=== PATIENT | female | born 1950 | race Caucasian/White ===

== ENCOUNTER 2016-12-03 05:26 | Day surgery (SDC) | payer MEDICARE ==
[2016-12-02 10:47] LABS: HEMOGLOBIN 14.5 g/dL (12-16); MCH 29.6 pg (26.0-34.0); MCV 89.8 fL (80.0-100.0); MEAN PLATELET VOLUME 9.8 fL (7.4-10.4); RBC 4.9 10x6/uL (4.00-5.40); RDW 14.1 % (11.5-14.5); WBC 12.9 10x3/uL (4.8-10.8)
[~2016-12-03] VITALS: Ht 175.3 cm; Wt 88.5 kg
[~2016-12-03 05:26] MED LIST: CALAN SR240 MG PO; LEXAPRO10 MG PO; PRAVASTATIN SOD10 MG PO
[2016-12-03 09:11] VITALS: BP 146/84; Ht 175.3 cm; Wt 88.5 kg
--- NOTE | 2016-12-03 15:13 | NUR ---
1520--DISCHARGE INSTRUCTIONS GIVEN, PT VERBALIZES UNDERSTANDING. PT OFF UNIT VIA [place]. DEJON RAMÍREZ
--- NOTE | 2016-12-03 15:13 | NUR ---
1512--IV DC'D, PT UP TO DRESS AT THIS TIME. DEJON RN
--- NOTE | 2016-12-17 09:50 | OP ---
PATIENT NAME: MYA LYMAN MEDICAL RECORD: [id number] :52 [facility]ATION:[facility] ADMISSION DATE: SURGEON: ANJUM ZHANG DPM DATE OF OPERATION: 12/03/2016 PREOPERATIVE DIAGNOSES: 1. Calcaneal spur, right foot. 2. Disruption, right Achilles tendon. POSTOPERATIVE DIAGNOSES: 1. Calcaneal spur, right foot. 2. Disruption, right Achilles tendon. PROCEDURES: 1. Gastroc recession, right leg. 2. Excision of calcaneal spur, right foot. 3. Repair of Achilles tendon, right foot. ANESTHESIA: Preoperative block per the anesthesia department, popliteal block with general anesthesia intraoperatively. PREOPERATIVE DETAILS: The patient was taken to the OR and following induction of general anesthesia, the patient was placed on the operating table in a prone position. The right extremity was then prepped and draped in the usual aseptic technique followed by exsanguination of the extremity and inflation of tourniquet. PROCEDURE NUMBER 1: Gastroc recession, right leg. A 15-blade was used to create a 3-4 cm linear incision over the posterior aspect of the right leg overlying the gastroc aponeurosis. The incision was deepened down bluntly through the subcutaneous tissue being sure to avoid all vital structures. The peritenon was then visualized. A linear incision was made and the peritenon was freed from the aponeurosis. With the foot in dorsiflexion, a cut was made through the aponeurosis allowing adequate dorsiflexion of the ankle joint. The wound was flushed and the skin was closed with skin shireen. PROCEDURE NUMBER 2: Calcaneal spur excision, right posterior heel. A 15-blade was used to create a longitudinal incision overlying the back of the right heel with the transverse incision about 2 cm in length at the base of the longitudinal incision, at the distal most end of longitudinal incision. The incision was deepened down through the subcutaneous tissue to the Achilles tendon which was freed giving good exposure of the posterior aspect of the heel. There was noted to be significant swelling within the soft tissue from the bursitis and Achilles tendonitis. The Achilles tendon was freed from the posterior aspect of the calcaneus. There was noted to be significant spurring on the posterior aspect as well as intratendinous calcifications which were excised. A sagittal saw was used to resect the posterior aspect on the spurring of the calcaneus giving a good smooth surface for reattachment. PROCEDURE NUMBER 3: Achilles tendon repair, right foot. Utilizing the suture bridge technique with 4 anchors in the calcaneus, the Achilles tendon was repaired with a very good rigid fixation. Following the repair, the foot was placed in dorsiflexion, noted that the repair held in a rigid manner. Following the suture bridge repair of the Achilles tendon, the wound was flushed. The peritenon was repaired with 2-0 Vicryl, the subcutaneous tissue with 4-0 Rapide OPERATIVE REPORT [id number] MYA LYMAN and the skin was closed with 4-0 Rapide in a subcuticular technique followed by Dermabond. Adaptic, 4 x 4 and Conform were used to dress the wounds followed by application of a modified Martinez compression dressing below the knee. The tourniquet was deflated. POSTOPERATIVE DETAILS: The patient tolerated the procedure well and left the OR with vital signs stable and vascular status at preop levels. The patient was transported to recovery per anesthesia in stable condition. TRANSINT:[id number] Voice Confirmation ID: [id number] DOCUMENT ID: [id number] ANJUM ZHANG DPM at 0950 CC: [id number] DICTATION DATE: 12/03/16 1339 DIVE MASTER: 12/03/16 1508 [facility] 12/03/16 [id number] [place] [address]
== END 2016-12-03 15:20 | disposition home or self-care (01) ==
LOC: D.OPS 05:26 → D.PAN 10:00 → D.OPS 10:00 → D.PAN 10:30 → D.OPS 15:20
PROVIDERS: Anesthesiology
DX: M77.31 Calcaneal spur, right foot (principal); S86.011A Strain of right Achilles tendon, initial encounter

== ENCOUNTER → 2017-01-13 21:08 | Outpatient (CLI) | payer MEDICARE ==
[2016-12-03 09:11] VITALS: BMI 28.8
== END | disposition home or self-care (01) ==
LOC: D.LABREF 21:08
DX: M77.31 Calcaneal spur, right foot (principal); M76.61 Achilles tendinitis, right leg